=== PATIENT | female | born 2000 | race Caucasian/White ===

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

== ENCOUNTER 2022-06-02 09:48 | Emergency (ER) | payer BC, SELFPAY ==
--- NOTE | ~2022-06-02 | XR_ITS ---
EXAMINATION: XR lumbar spine 2-3V DATE: 06/02/2022 10:36 INDICATION: Right posterior back pain. TECHNIQUE: 3 views of lumbar spine were obtained. COMPARISON: None. FINDINGS: There is 9 degrees levocurvature of lumbar spine. Vertebral body heights and intervertebral disc heights are normal. The facet joints are normal. IMPRESSION: 1. Lumbar levocurvature. Reviewed, dictated and finalized at location A. OYMENT SPECIALIST IMPRESSION: 1. Lumbar levocurvature.
--- NOTE | ~2022-06-02 | XR_ITS ---
XR hip RT min 2V 06/02/2022 10:36 INDICATION: Right hip pain PROCEDURE: 2 views right hip COMPARISON: No prior studies for comparison. FINDINGS: Fracture, dislocation or subluxation is not identified. The soft tissues appear within norm al limits. No foreign bodies are identified. IMPRESSION: 1: NO ACUTE BONE OR JOINT ABNORMALITY IDENTIFIED. Reviewed, dictated and finalized at location L. RONMENTAL SAFETY SPECIALIST
[2022-06-02 10:00] VITALS: BP 113/67; PULSE 90; RESP 20; TEMP 36.6; O2SAT 100
--- NOTE | 2022-06-02 10:10 | ED.BACK ---
HPI - Back Pain/Injury General Chief Complaint: Back Pain/Injury Stated Complaint: rt hip pain Time Seen by Provider: 06/02/22 10:10 Source: patient Mode of arrival: ambulatory Limitations: no limitations History of Present Illness HPI Narrative: 21 y/o female presented for c/o right hip/low back pain worsening for 3 days. Denies known injury or overuse. States she woke the day of onset with 'soreness' that progressed over the following days. No relief with Tylenol, ibuprofen, heat/ice. Pain radiates from right lower back into the right medial thigh to knee. Also reports right leg is slightly longer than left, which is new. Ambulating without difficulty. Unable to find comfortable position to relieve pain. Pain is constant and sharp. States she is active with her job, per usual. Denies numbness, tingling or weakness of the extremity, denies loss of bowel/bladder control or saddle paresthesia. Related Data Home Medications Medication Instructions Recorded Confirmed norgestimate 0.25 mg-ethinyl 1 tablet PO DAILY 07/22/19 06/02/22 estradiol 35 mcg tablet (Sprintec (28)) Allergies Allergy/AdvReac Type Severity Reaction Status Date / Time No Known Allergies Allergy Unverified 06/02/22 09:52 Review of Systems Review of Systems: CONSTITUTIONAL: Denies body aches, fever, chills EYES: Denies visual changes CARDIOVASCULAR: Denies chest pain, palpitations, or edema. RESPIRATORY: Denies cough or dyspnea. GASTROINTESTINAL: Denies abdominal pain, nausea, vomiting, or diarrhea. SKIN: Denies rash, itching, or wounds. MUSCULOSKELETAL: reports back pain NEUROLOGIC: Denies headache, numbness, tingling, or weakness. All systems reviewed & are unremarkable except as noted in HPI and below PMFSH Past Medical History Medical History No acute medical problems Surgical History Surgical History History of nasal surgery Social History Social History Gender identity (if verbalized by the patient): Female Comments At time of signature, I have reviewed and agree with nursing past medical, surgical, social and family history unless otherwise noted. Please see nursing chart for further information. There is no relevant family history pertinent to the presenting complaint Exam Narrative: GENERAL: Well-appearing CHEST: Speaks in full sentences. No respiratory distress. HEART: Regular rate and rhythm. Normal and equal peripheral pulses. MUSC: No Vertebral point tenderness. BLEs with normal strength and sensation, normal range of motion but endorses pain to right hip with movement of knee medially, and palpation over upper hip c/w L3 impingement. No open wounds. RLE slightly longer than LLE; alignment normal, pulses palpable and equal bilaterally, skin warm, dry, pink. Capillary refill less than 3 seconds. Gait steady. SKIN: Warm, dry, no rash. NEURO: Alert and oriented x3. Course Course Emergency Course: Patient is aware of diagnosis, understands and agrees to treatment plan. Anticipatory guidance given. Patient agrees to follow-up as directed and is aware of reasons to seek care at the emergency department. Portions of this record may have been created with voice recognition software Level of Care: Express Care Visit Vital Signs Vital signs: Vital Signs Temperature 98 F 06/02/22 10:00 Pulse Rate 90 06/02/22 10:00 Respiratory Rate 20 06/02/22 10:00 Blood Pressure 113/67 06/02/22 10:00 Pulse Oximetry 100 06/02/22 10:00 Temperature 98 F 06/02/22 10:00 Pulse Rate 90 06/02/22 10:00 Respiratory Rate 20 06/02/22 10:00 Blood Pressure 113/67 06/02/22 10:00 Pulse Oximetry 100 06/02/22 10:00 Reviewed MDM - Back Pain/Injury MDM Narrative Medical decision making narrative: Xrays reviewed with pt. Advised supportive m
== END 2022-06-02 11:00 | disposition home or self-care (01) ==
PROVIDERS: Emergency Provider Nurse Practitioner Family
DX: M54.16 Radiculopathy, lumbar region (principal)
CPT/HCPCS: 72100; 73502; 99214; G0463